=== PATIENT | female | born 1955 | race Caucasian/White ===

== ENCOUNTER 2016-09-01 03:03 | Emergency (ER) | payer MEDICARE, MEDICAID, OTHER ==
[~2016-09-01] VITALS: Ht 144.8 cm; Wt 40.9 kg
[~2016-09-01 03:03] MED LIST: AMLO5TAB88 PO; ASC250 PO; Aspirin PO; BUPR100T6 PO; Benazepril Hcl PO; COR12 PO; LEVO250T2 PO; MEGE400O28 PO; NEPVIT PO; OMEP20CA10 PO; OR220 PO; Silver Sulfadiazine TOP
[2016-09-01] MEDS ORDERED: DEXTROSE 50% WATER 50ML SYRINGE IV ONE (03:33)
[2016-09-01 05:06] LABS: CALCIUM 8.1 mg/dL (8.5-10.1)
[2016-09-01 05:10] VITALS: BP 142/67
[2016-09-01 05:17] LABS: BASOPHILS % 1.5 % (0.0-2.0); EOSINOPHILS % 3.4 % (0.0-5.0); HEMATOCRIT. 28.7 % (36.0-48.0); HEMOGLOBIN. 9.4 g/dL (12.0-16.0); LYMPHOCYTES % 23.7 % (20.0-50.0); MEAN CORPUSCULAR HEMOGLOBIN 32.5 pg (28.0-32.0); MEAN CORPUSCULAR HGB CONC 32.7 g/dL (31.0-37.0); MEAN CORPUSCULAR VOLUME 99.5 fL (81.0-99.0); MEAN PLATELET VOLUME 8.4 fl (7.4-10.4); MONOCYTES % 11.4 % (2.0-8.0); PLATELET 103 x1000/uL (130-400); RED BLOOD CELL COUNT 2.88 mill/uL (4.2-5.4); RED CELL DISTRIBUTION WIDTH 18.4 % (11.6-14.6)
== END 2016-09-01 07:13 | disposition home or self-care (01) ==
LOC: ER 03:04
DX: E11.649 Type 2 diabetes mellitus with hypoglycemia without coma (principal); I12.0 Hypertensive chronic kidney disease with stage 5 chronic kidney disease or end stage renal disease; N18.6 End stage renal disease; E11.22 Type 2 diabetes mellitus with diabetic chronic kidney disease; Z99.2 Dependence on renal dialysis; Z88.1 Allergy status to other antibiotic agents; Z88.0 Allergy status to penicillin; Z79.82 Long term (current) use of aspirin
CPT/HCPCS: 36415; 71010; 80048; 82962; 85025; 93005; 99285

== ENCOUNTER 2016-09-02 02:14 | Observation (INO) | payer MEDICARE, OTHER ==
[~2016-09-02] VITALS: Ht 157.5 cm; Wt 40.1 kg
[2016-09-02 03:17] LABS: BASOPHILS % 1.5 % (0.0-2.0); EOSINOPHILS % 3.1 % (0.0-5.0); HEMATOCRIT. 26.9 % (36.0-48.0); HEMOGLOBIN. 8.9 g/dL (12.0-16.0); LYMPHOCYTES % 18.7 % (20.0-50.0); MEAN CORPUSCULAR HEMOGLOBIN 32.5 pg (28.0-32.0); MEAN CORPUSCULAR VOLUME 98.3 fL (81.0-99.0); MEAN PLATELET VOLUME 7.9 fl (7.4-10.4); MONOCYTES % 8.7 % (2.0-8.0); PLATELET 95 x1000/uL (130-400); RED BLOOD CELL COUNT 2.73 mill/uL (4.2-5.4); RED CELL DISTRIBUTION WIDTH 18.2 % (11.6-14.6); WHITE BLOOD COUNT 5.4 x1000/uL (4.5-11.0)
[2016-09-02 03:27] LABS: AMMONIA 28 uMol/L (<32); INDEX HEMOLYSI 1 (1-3)
[2016-09-02 03:35] LABS: ACETAMINOPHEN < 2 ug/mL (10-30); ALANINE AMINOTRANSFERASE 8 IU/L (13-61); ALBUMIN 2.4 g/dL (3.4-5.0); ANION GAP 9; CARBON DIOXIDE 34 mEq/L (21-32); CHLORIDE 96 mEq/L (98-107); ETHANOL BLOOD < 10 mg/dL; INDEX HEMOLYSI 1 (1-3); INDEX ICTERIC 1 (1-4); INDEX LIPEMIC 1 (1-3); LIPASE 51 IU/L (73-393); TROPONIN I 0.02 ng/mL (0.00-0.04); UREA NITROGEN BLOOD 10 mg/dL (7-21); eGFR 42 mL/min (>60)
[2016-09-02 03:39] LABS: INR 1.3; PROTHROMBIN TIME 13.9 sec
[2016-09-02 03:47] LABS: NT PRO B-TYPE NATRIURETIC PEP 70337 pg/mL (5-125)
[2016-09-02] MEDS ORDERED: POTASSIUM CHLORIDE 20MEQ TABLET SR PO ONE (04:00)
[2016-09-02] MEDS ORDERED: LEVOFLOXACIN 500MG PREMIX 100 ML IV ONE (05:15)
[2016-09-02] MEDS ORDERED: VANCOMYCIN 1 G PREMIX 200 ML IV SCH (05:15)
[2016-09-02] MEDS ORDERED: LEVETIRACETAM 500MG PREMIX 100 ML IV ONE (05:15)
[2016-09-02 06:25] LABS: BG BASE EXCESS 5.2 mmol/L (-2.0-2.0); BG CARBOXYHEMOGLOBIN 1.7 % (0.5-1.5); BG DEOXYHEMOGLOBIN 4.3 % (0.0-5.0); BG FRACTION INSPIRED OXYGEN 21; BG METHEMOGLOBIN 0.3 % (0.0-1.5); BG OXYGEN SATURATION 95.6 % (92.0-98.5); BG OXYHEMOGLOBIN 93.7 % (94.0-97.0); BG PCO2 52.1 mmHg (35.0-45.0); BG PH 7.392 (7.350-7.450); BG PO2 87.4 mmHg (75.0-100.0); BG SAMPLE SITE RIGHT RADIAL; BG TOTAL HEMOGLOBIN 9.7 g/dL (12.0-18.0); BG VENT MODE ROOM AIR
[2016-09-02 08:05] VITALS: BP 134/64
[2016-09-02 12:00] VITALS: BP_SYST 116; BP_SYST 128; BP_DIAS 69; BP_DIAS 70
[2016-09-02 12:21] LABS: BASOPHILS % 1.1 % (0.0-2.0); EOSINOPHILS % 4.5 % (0.0-5.0); HEMATOCRIT. 26.8 % (36.0-48.0); LYMPHOCYTES % 25.1 % (20.0-50.0); MEAN CORPUSCULAR HGB CONC 33.6 g/dL (31.0-37.0); MEAN CORPUSCULAR VOLUME 98.1 fL (81.0-99.0); MEAN PLATELET VOLUME 8.5 fl (7.4-10.4); MONOCYTES % 6.8 % (2.0-8.0); NEUTROPHILS % 62.5 % (40.0-76.0); PLATELET 89 x1000/uL (130-400); RED BLOOD CELL COUNT 2.73 mill/uL (4.2-5.4); RED CELL DISTRIBUTION WIDTH 18.1 % (11.6-14.6); WHITE BLOOD COUNT 4.5 x1000/uL (4.5-11.0)
[2016-09-02] MEDS ORDERED: DEXTROSE 50% WATER 50ML SYRINGE IV PRN (12:30)
[2016-09-02] MEDS: BLOOD SUGAR DIAGNOSTIC STRIP TEST SCH ×3 (12:41→21:50)
[2016-09-02] MEDS: INSULIN LISPRO 100 UNITS/ML SUBCUT SCH ×3 (12:41→21:00)
[2016-09-02] MEDS: ASPIRIN 81MG EC TABLET PO SCH (12:42)
[2016-09-02] MEDS: ZINC SULFATE 220 MG ( 50 ) CAPSULE PO SCH (12:42)
[2016-09-02] MEDS: BUPROPION HCL 100MG SR TABLET PO SCH (12:42)
[2016-09-02] MEDS: ASCORBIC ACID 250 MG TABLET PO SCH ×2 (12:42→21:50)
[2016-09-02] MEDS: CARVEDILOL 12.5MG TABLET PO SCH ×2 (12:42→21:00)
[2016-09-02] MEDS: AMLODIPINE 5MG TABLET PO SCH ×2 (12:42→21:00)
[2016-09-02] MEDS: OMEPRAZOLE 20MG CAPSULE EXTENDED RELEASE PO SCH (12:42)
[2016-09-02] MEDS: MEGESTROL ACETATE 400 MG/10 ML UDC PO SCH (12:42)
[2016-09-02] MEDS: BENAZEPRIL 20MG TABLET PO SCH ×2 (12:42→21:00)
[2016-09-02] MEDS: FOLIC ACID/VITAMIN B COMP W-C TABLET PO SCH (12:43)
[2016-09-02 16:00] VITALS: BP_SYST 118; BP_SYST 99; BP_DIAS 57; BP_DIAS 67
[2016-09-02 20:00] VITALS: BP 101/48
[2016-09-02] MEDS ORDERED: ONDANSETRON HCL 4MG/2ML VIAL IV PRN (22:30)
[2016-09-02] MEDS ORDERED: ACETAMINOPHEN 325MG TABLET PO PRN (22:30)
[2016-09-02] MEDS ORDERED: GENTAMICIN 80MG PREMIX 100 ML IV NR (23:30)
[2016-09-02] MEDS: IPRATROPIUM/ALBUTEROL 0.5-3(2.5)MG/3ML NEB HHN SCH (23:38)
[2016-09-03] VITALS: BP 150/72
[2016-09-03] MEDS: IPRATROPIUM/ALBUTEROL 0.5-3(2.5)MG/3ML NEB HHN SCH ×4 (03:28→16:12)
[2016-09-03 04:00] VITALS: BP 147/72
[2016-09-03] MEDS: BLOOD SUGAR DIAGNOSTIC STRIP TEST SCH ×4 (06:28→20:40)
[2016-09-03 08:00] VITALS: BP 162/74
[2016-09-03] MEDS: INSULIN LISPRO 100 UNITS/ML SUBCUT SCH ×4 (08:10→20:41)
[2016-09-03] MEDS: ASPIRIN 81MG EC TABLET PO SCH ×2 (08:16→08:20)
[2016-09-03] MEDS: BUPROPION HCL 100MG SR TABLET PO SCH (08:16)
[2016-09-03] MEDS: FOLIC ACID/VITAMIN B COMP W-C TABLET PO SCH (08:16)
[2016-09-03] MEDS: ASCORBIC ACID 250 MG TABLET PO SCH ×2 (08:16→20:33)
[2016-09-03] MEDS: LEVOTHYROXINE SODIUM 50MCG TABLET PO SCH (08:16)
[2016-09-03] MEDS: ZINC SULFATE 220 MG ( 50 ) CAPSULE PO SCH (08:16)
[2016-09-03] MEDS: MEGESTROL ACETATE 400 MG/10 ML UDC PO SCH ×2 (08:17→08:20)
[2016-09-03] MEDS: OMEPRAZOLE 20MG CAPSULE EXTENDED RELEASE PO SCH (08:17)
[2016-09-03] MEDS: AMLODIPINE 5MG TABLET PO SCH ×2 (08:17→20:33)
[2016-09-03] MEDS: CARVEDILOL 12.5MG TABLET PO SCH ×2 (08:17→20:33)
[2016-09-03 08:44] LABS: BASOPHILS % 0.9 % (0.0-2.0); EOSINOPHILS % 3.6 % (0.0-5.0); HEMATOCRIT. 25.3 % (36.0-48.0); HEMOGLOBIN. 8.6 g/dL (12.0-16.0); LYMPHOCYTES % 21.2 % (20.0-50.0); MEAN CORPUSCULAR HGB CONC 33.8 g/dL (31.0-37.0); MEAN CORPUSCULAR VOLUME 97.6 fL (81.0-99.0); MEAN PLATELET VOLUME 8.8 fl (7.4-10.4); MONOCYTES % 5.6 % (2.0-8.0); NEUTROPHILS % 68.7 % (40.0-76.0); PLATELET 96 x1000/uL (130-400); RED BLOOD CELL COUNT 2.59 mill/uL (4.2-5.4); RED CELL DISTRIBUTION WIDTH 17.9 % (11.6-14.6)
[2016-09-03] MEDS ORDERED: ENOXAPARIN 30MG/0.3ML SYR SUBCUT SCH (09:00)
[2016-09-03] MEDS: BENAZEPRIL 20MG TABLET PO SCH ×2 (09:00→20:37)
[2016-09-03 12:00] VITALS: BP 123/57
[2016-09-03 16:00] VITALS: BP 101/47
[2016-09-03 20:00] VITALS: BP 128/67
[2016-09-03] MEDS: TEMAZEPAM 15MG CAPSULE PO PRN (20:33)
[2016-09-04 00:05] VITALS: BP 125/71
[2016-09-04] MEDS: IPRATROPIUM/ALBUTEROL 0.5-3(2.5)MG/3ML NEB HHN SCH ×3 (00:45→21:01)
[2016-09-04 04:00] VITALS: BP 130/60
[2016-09-04 05:58] LABS: BASOPHILS % 0.8 % (0.0-2.0); EOSINOPHILS % 4.6 % (0.0-5.0); HEMATOCRIT. 26.1 % (36.0-48.0); HEMOGLOBIN. 8.7 g/dL (12.0-16.0); LYMPHOCYTES % 25.9 % (20.0-50.0); MEAN CORPUSCULAR HEMOGLOBIN 32.8 pg (28.0-32.0); MEAN CORPUSCULAR HGB CONC 33.3 g/dL (31.0-37.0); MEAN CORPUSCULAR VOLUME 98.3 fL (81.0-99.0); MEAN PLATELET VOLUME 8.4 fl (7.4-10.4); NEUTROPHILS % 62.7 % (40.0-76.0); PLATELET 104 x1000/uL (130-400); RED BLOOD CELL COUNT 2.65 mill/uL (4.2-5.4); RED CELL DISTRIBUTION WIDTH 17.9 % (11.6-14.6); WHITE BLOOD COUNT 5.5 x1000/uL (4.5-11.0)
[2016-09-04] MEDS: BLOOD SUGAR DIAGNOSTIC STRIP TEST SCH ×4 (07:40→20:30)
[2016-09-04 07:49] LABS: ALANINE AMINOTRANSFERASE 7 IU/L (13-61); ALBUMIN 2.5 g/dL (3.4-5.0); ANION GAP 12; CALCIUM 8.2 mg/dL (8.5-10.1); CARBON DIOXIDE 29 mEq/L (21-32); CHLORIDE 97 mEq/L (98-107); INDEX HEMOLYSI 1 (1-3); INDEX ICTERIC 1 (1-4); INDEX LIPEMIC 1 (1-3); UREA NITROGEN BLOOD 28 mg/dL (7-21); eGFR 17 mL/min (>60)
[2016-09-04 08:00] VITALS: BP 147/73
[2016-09-04] MEDS: INSULIN LISPRO 100 UNITS/ML SUBCUT SCH ×4 (08:10→20:30)
[2016-09-04] MEDS: ZINC SULFATE 220 MG ( 50 ) CAPSULE PO SCH (10:49)
[2016-09-04] MEDS: BUPROPION HCL 100MG SR TABLET PO SCH (10:49)
[2016-09-04] MEDS: ASCORBIC ACID 250 MG TABLET PO SCH ×2 (10:49→21:40)
[2016-09-04] MEDS: MEGESTROL ACETATE 400 MG/10 ML UDC PO SCH (10:49)
[2016-09-04] MEDS: CARVEDILOL 12.5MG TABLET PO SCH ×2 (10:49→21:40)
[2016-09-04] MEDS: LEVOTHYROXINE SODIUM 50MCG TABLET PO SCH (10:49)
[2016-09-04] MEDS: FOLIC ACID/VITAMIN B COMP W-C TABLET PO SCH (10:49)
[2016-09-04] MEDS: OMEPRAZOLE 20MG CAPSULE EXTENDED RELEASE PO SCH (10:49)
[2016-09-04] MEDS: ASPIRIN 81MG EC TABLET PO SCH (10:49)
[2016-09-04] MEDS: AMLODIPINE 5MG TABLET PO SCH ×2 (10:49→21:39)
[2016-09-04] MEDS: BENAZEPRIL 20MG TABLET PO SCH ×2 (10:51→21:43)
[2016-09-04 12:00] VITALS: BP 148/72
[2016-09-04 16:00] VITALS: BP 108/66
[2016-09-04 20:00] VITALS: BP 117/65
[2016-09-04] MEDS: TEMAZEPAM 15MG CAPSULE PO PRN (21:39)
[2016-09-05] VITALS: BP 128/57
[2016-09-05] MEDS: IPRATROPIUM/ALBUTEROL 0.5-3(2.5)MG/3ML NEB HHN SCH ×4 (00:37→11:12)
[2016-09-05 04:00] VITALS: BP 142/74
[2016-09-05] MEDS: BLOOD SUGAR DIAGNOSTIC STRIP TEST SCH (07:40)
[2016-09-05] MEDS: LEVOTHYROXINE SODIUM 50MCG TABLET PO SCH (07:40)
[2016-09-05] MEDS: OMEPRAZOLE 20MG CAPSULE EXTENDED RELEASE PO SCH (07:40)
[2016-09-05 08:00] VITALS: BP 146/110
[2016-09-05] MEDS: CARVEDILOL 12.5MG TABLET PO SCH (09:00)
[2016-09-05] MEDS: ASPIRIN 81MG EC TABLET PO SCH (09:00)
[2016-09-05] MEDS: ASCORBIC ACID 250 MG TABLET PO SCH (09:00)
[2016-09-05] MEDS: BENAZEPRIL 20MG TABLET PO SCH (09:00)
[2016-09-05] MEDS: AMLODIPINE 5MG TABLET PO SCH (09:00)
[2016-09-05] MEDS: MEGESTROL ACETATE 400 MG/10 ML UDC PO SCH (09:00)
[2016-09-05] MEDS: BUPROPION HCL 100MG SR TABLET PO SCH (09:00)
[2016-09-05] MEDS: ZINC SULFATE 220 MG ( 50 ) CAPSULE PO SCH (09:00)
[2016-09-05] MEDS: FOLIC ACID/VITAMIN B COMP W-C TABLET PO SCH (09:00)
[2016-09-05 11:52] VITALS: BP 95/45
[2016-09-05 16:20] VITALS: BP 136/66
[2016-09-05 17:36] VITALS: BP 136/66
== END 2016-09-05 19:50 | disposition home or self-care (01) ==
LOC: ER 02:15 → 7WST 05:55 → INTOOBSV 05:55
PROVIDERS: ADMIT Internal Medicine; ATTEND Internal Medicine
DX: I50.9 Heart failure, unspecified (principal); J98.11 Atelectasis; G93.40 Encephalopathy, unspecified; N18.6 End stage renal disease; E11.22 Type 2 diabetes mellitus with diabetic chronic kidney disease; I13.2 Hypertensive heart and chronic kidney disease with heart failure and with stage 5 chronic kidney disease, or end stage renal disease; E11.21 Type 2 diabetes mellitus with diabetic nephropathy; M54.9 Dorsalgia, unspecified; E11.40 Type 2 diabetes mellitus with diabetic neuropathy, unspecified; E11.319 Type 2 diabetes mellitus with unspecified diabetic retinopathy without macular edema; E46 Unspecified protein-calorie malnutrition; R09.02 Hypoxemia; Z99.2 Dependence on renal dialysis; E11.51 Type 2 diabetes mellitus with diabetic peripheral angiopathy without gangrene; D63.8 Anemia in other chronic diseases classified elsewhere; G82.20 Paraplegia, unspecified; M86.9 Osteomyelitis, unspecified; A41.9 Sepsis, unspecified organism; E03.9 Hypothyroidism, unspecified; E11.69 Type 2 diabetes mellitus with other specified complication; K74.60 Unspecified cirrhosis of liver; I31.3 Pericardial effusion (noninflammatory); Z88.0 Allergy status to penicillin
CPT/HCPCS: 36415; 36600; 70450; 70551; 71010; 74176; 80048; 80053; 80061; 80307; 80329; 82140; 82375; 82805; 82962; 83605; 83690; 83880; 84443; 84484; 85025; 85610; 93005; 94640; 94664; 96365; 96367; 96372; 96375; 97166; 99285; G0378; G0482; J1580; J1815; J1953; J1956; J2405; J3370; J7030; J7050; J7620; A4315

== ENCOUNTER 2016-09-10 08:33 | Emergency (ER) | payer MEDICARE, OTHER ==
[~2016-09-10] VITALS: Ht 160 cm; Wt 56.0 kg
[2016-09-10] MEDS ORDERED: DEXTROSE 50% WATER 50ML SYRINGE IV ONE ×2 (08:45→08:46)
[2016-09-10 08:57] LABS: BASOPHILS % 1.2 % (0.0-2.0); EOSINOPHILS % 3.9 % (0.0-5.0); LYMPHOCYTES % 33.2 % (20.0-50.0); MEAN CORPUSCULAR HEMOGLOBIN 32.9 pg (28.0-32.0); MEAN CORPUSCULAR VOLUME 98.6 fL (81.0-99.0); MEAN PLATELET VOLUME 8.5 fl (7.4-10.4); MONOCYTES % 8.1 % (2.0-8.0); NEUTROPHILS % 53.6 % (40.0-76.0); PLATELET 128 x1000/uL (130-400); RED BLOOD CELL COUNT 2.44 mill/uL (4.2-5.4); RED CELL DISTRIBUTION WIDTH 16.8 % (11.6-14.6)
[2016-09-10 08:59] LABS: CHLORIDE 94 mEq/L (98-107)
[2016-09-10 09:04] LABS: CARBON DIOXIDE 35 mEq/L (21-32)
[2016-09-10 14:04] VITALS: BP 158/74
== END 2016-09-10 14:07 | disposition home or self-care (01) ==
LOC: ER 08:34
DX: E11.649 Type 2 diabetes mellitus with hypoglycemia without coma (principal); I12.0 Hypertensive chronic kidney disease with stage 5 chronic kidney disease or end stage renal disease; E11.22 Type 2 diabetes mellitus with diabetic chronic kidney disease; N18.6 End stage renal disease; Z99.2 Dependence on renal dialysis; Z88.3 Allergy status to other anti-infective agents; Z88.0 Allergy status to penicillin
CPT/HCPCS: 36415; 51702; 70450; 71010; 80053; 82962; 85025; 93005; 96374; 99285; A4315

== ENCOUNTER 2016-11-11 02:37 | Inpatient (IN) | payer MEDICARE, OTHER ==
[~2016-11-11] VITALS: Ht 160 cm; Wt 45.4 kg
[~2016-11-11 02:37] MED LIST changes: +ALPR-392 PO; +BENA40TA3 PO; +CODE118S2 PO; +HUMULIN 70/30; +VITAMIN C PO
[2016-11-11 03:28] LABS: BASOPHILS % 1.1 % (0.0-2.0); EOSINOPHILS % 0.7 % (0.0-5.0); HEMATOCRIT. 33.5 % (36.0-48.0); HEMOGLOBIN. 11.2 g/dL (12.0-16.0); LYMPHOCYTES % 17.3 % (20.0-50.0); MEAN CORPUSCULAR HEMOGLOBIN 32.7 pg (28.0-32.0); MEAN CORPUSCULAR VOLUME 97.8 fL (81.0-99.0); MEAN PLATELET VOLUME 9.8 fl (7.4-10.4); MONOCYTES % 11.8 % (2.0-8.0); NEUTROPHILS % 69.1 % (40.0-76.0); PLATELET 128 x1000/uL (130-400); RED BLOOD CELL COUNT 3.42 mill/uL (4.2-5.4); RED CELL DISTRIBUTION WIDTH 17.8 % (11.6-14.6)
[2016-11-11] MEDS ORDERED: DEXT 10% WATER 1,000 ML IV ONE (04:31)
[2016-11-11 08:37] VITALS: BP 144/55
[2016-11-11 09:10] VITALS: BP 144/55
[2016-11-11 10:16] VITALS: BP 144/55
[2016-11-11] MEDS ORDERED: FOLI0.8T23 PO (10:37)
[2016-11-11] MEDS ORDERED: HYDROMORPHONE HCL/PF 2MG/ML CPJ IV PRN (11:00)
[2016-11-11] MEDS ORDERED: BENAZEPRIL 20MG TABLET PO SCH (11:00)
[2016-11-11] MEDS ORDERED: MEDICATION NOT ON FORMULARY EA (Alprazolam 0.25 MG) PO SCH (11:00)
[2016-11-11] MEDS ORDERED: LORAZEPAM 2MG/ML CPJ IV PRN (11:00)
[2016-11-11] MEDS ORDERED: MEDICATION NOT ON FORMULARY EA (Benazepril Hcl 1 TAB) PO SCH (11:00)
[2016-11-11] MEDS ORDERED: POTASSIUM CHLORIDE 20MEQ TABLET SR PO SCH (11:00)
[2016-11-11] MEDS ORDERED: DIPHENHYDRAMINE 50MG/ML VIAL IV PRN (11:00)
[2016-11-11] MEDS ORDERED: ACETAMINOPHEN 325MG TABLET PO PRN (11:00)
[2016-11-11] MEDS ORDERED: ONDANSETRON HCL 4MG/2ML VIAL IV PRN (11:00)
[2016-11-11] MEDS ORDERED: ASPIRIN PO SCH (11:00)
[2016-11-11] MEDS ORDERED: GUAIFENESIN/CODEINE 200-20MG/10ML UDC PO PRN (11:15)
[2016-11-11] MEDS ORDERED: ALPRAZOLAM 0.25 MG TABLET PO PRN (11:15)
[2016-11-11 11:56] VITALS: BP 154/49
[2016-11-11] MEDS: ASCORBIC ACID 250 MG TABLET PO SCH ×2 (12:11→20:21)
[2016-11-11] MEDS: AMLODIPINE 5MG TABLET PO SCH ×2 (12:12→20:21)
[2016-11-11] MEDS: ASPIRIN 81MG EC TABLET PO SCH (12:13)
[2016-11-11] MEDS: FOLIC ACID/VITAMIN B COMP W-C TABLET PO SCH (12:13)
[2016-11-11] MEDS: ENOXAPARIN 30MG/0.3ML SYR SUBCUT SCH (12:14)
[2016-11-11] MEDS: BENAZEPRIL 20MG TABLET PO SCH (12:16)
[2016-11-11] MEDS ORDERED: DEXTROSE 50% WATER 50ML SYRINGE IV PRN (13:00)
[2016-11-11 15:29] VITALS: BP 148/45
[2016-11-11] MEDS: BLOOD SUGAR DIAGNOSTIC STRIP TEST SCH ×2 (16:30→20:33)
[2016-11-11] MEDS: DEXTROSE 5% WATER 1,000 ML IV SCH (17:05)
[2016-11-11 20:00] VITALS: BP 136/57
[2016-11-11] MEDS ORDERED: [UNRECOGNIZED DRUG - OTHER] PO SCH (21:00)
[2016-11-12] VITALS: BP 131/49
[2016-11-12 04:00] VITALS: BP 125/61
[2016-11-12] MEDS: BLOOD SUGAR DIAGNOSTIC STRIP TEST SCH ×2 (07:41→11:12)
[2016-11-12 07:53] LABS: HEMATOCRIT. 32.1 % (36.0-48.0); HEMOGLOBIN. 10.7 g/dL (12.0-16.0); MEAN CORPUSCULAR HEMOGLOBIN 32.6 pg (28.0-32.0); MEAN CORPUSCULAR VOLUME 97.3 fL (81.0-99.0); PLATELET 130 x1000/uL (130-400); RED CELL DISTRIBUTION WIDTH 17.2 % (11.6-14.6)
[2016-11-12 08:00] VITALS: BP 142/71
[2016-11-12 08:27] LABS: CARBON DIOXIDE 29 mEq/L (21-32); CHLORIDE 92 mEq/L (98-107)
[2016-11-12] MEDS: ASCORBIC ACID 250 MG TABLET PO SCH (09:56)
[2016-11-12] MEDS: FOLIC ACID/VITAMIN B COMP W-C TABLET PO SCH (09:56)
[2016-11-12] MEDS: BENAZEPRIL 20MG TABLET PO SCH (09:56)
[2016-11-12] MEDS: AMLODIPINE 5MG TABLET PO SCH (09:57)
[2016-11-12] MEDS: ENOXAPARIN 30MG/0.3ML SYR SUBCUT SCH (09:57)
[2016-11-12] MEDS: ASPIRIN 81MG EC TABLET PO SCH (09:57)
[2016-11-12] MEDS: DEXTROSE 5% WATER 1,000 ML IV SCH (11:08)
[2016-11-12 12:00] VITALS: BP 118/67
[2016-11-12 13:53] VITALS: BP 118/67
[2016-11-12 14:49] LABS: PLATELET ESTIMATE NORMAL
== END 2016-11-12 15:55 | disposition home or self-care (01) | DRG 637 ==
LOC: ER 02:37 → 8WST 06:17 → EDBEDREQ 06:43 → ENRESERV 07:01 → 8WST 08:38
PROVIDERS: ADMIT Internal Medicine; ATTEND Internal Medicine
DX: E11.649 Type 2 diabetes mellitus with hypoglycemia without coma (principal); E43 Unspecified severe protein-calorie malnutrition; I12.0 Hypertensive chronic kidney disease with stage 5 chronic kidney disease or end stage renal disease; Z68.1 Body mass index [BMI] 19.9 or less, adult; N18.6 End stage renal disease; D63.8 Anemia in other chronic diseases classified elsewhere; E11.22 Type 2 diabetes mellitus with diabetic chronic kidney disease; E87.6 Hypokalemia; E11.51 Type 2 diabetes mellitus with diabetic peripheral angiopathy without gangrene; Z99.2 Dependence on renal dialysis; Z99.3 Dependence on wheelchair; Z88.1 Allergy status to other antibiotic agents; Z88.0 Allergy status to penicillin; I73.9 Peripheral vascular disease, unspecified
CPT/HCPCS: 36415; 71010; 80048; 80053; 82962; 83690; 84443; 85007; 85025; 85027; 93005; 96360; 99291; J1650; J2060; J2405; J7070

== ENCOUNTER 2016-11-15 11:18 | Emergency (ER) | payer MEDICARE, OTHER ==
[~2016-11-15] VITALS: Ht 154.9 cm; Wt 50.0 kg
[~2016-11-15 11:18] MED LIST changes: +FOLI0.8T23 PO; -HUMULIN 70/30
[2016-11-15 12:44] LABS: EOSINOPHILS % 1.9 % (0.0-5.0); HEMATOCRIT. 29.2 % (36.0-48.0); HEMOGLOBIN. 9.7 g/dL (12.0-16.0); LYMPHOCYTES % 19.1 % (20.0-50.0); MEAN CORPUSCULAR HEMOGLOBIN 32.8 pg (28.0-32.0); MEAN CORPUSCULAR VOLUME 98.1 fL (81.0-99.0); MEAN PLATELET VOLUME 8.5 fl (7.4-10.4); MONOCYTES % 6.3 % (2.0-8.0); NEUTROPHILS % 71.7 % (40.0-76.0); PLATELET 113 x1000/uL (130-400); RED BLOOD CELL COUNT 2.97 mill/uL (4.2-5.4); RED CELL DISTRIBUTION WIDTH 17.9 % (11.6-14.6)
[2016-11-15 12:52] LABS: INR 1.3; PROTHROMBIN TIME 13.4 sec
[2016-11-15 12:58] LABS: CARBON DIOXIDE 32 mEq/L (21-32); CHLORIDE 98 mEq/L (98-107)
[2016-11-15] MEDS ORDERED: POTASSIUM CHLORIDE 20MEQ TABLET SR PO ONE (14:00)
[2016-11-15 17:50] VITALS: BP 173/91
== END 2016-11-15 17:54 | disposition home or self-care (01) ==
LOC: ER 11:38 → CANBEDREQ 16:16 → ER 17:54
DX: R41.82 Altered mental status, unspecified (principal); R53.1 Weakness; E11.22 Type 2 diabetes mellitus with diabetic chronic kidney disease; I12.0 Hypertensive chronic kidney disease with stage 5 chronic kidney disease or end stage renal disease; N18.6 End stage renal disease; Z88.0 Allergy status to penicillin; Z99.2 Dependence on renal dialysis
CPT/HCPCS: 36415; 70450; 71010; 80053; 83605; 85025; 85610; 87040; 93005; 99285

== ENCOUNTER 2016-11-18 14:28 | Emergency (ER) | payer MEDICARE, OTHER ==
[~2016-11-18] VITALS: Ht 142.2 cm; Wt 46.0 kg
[2016-11-18] MEDS ORDERED: CODE118S2 PO (17:16)
[2016-11-18] MEDS ORDERED: ASPI-1159 PO (17:20)
[2016-11-18] MEDS ORDERED: BENA40TA3 PO (17:20)
[2016-11-18] MEDS ORDERED: AMLO10TA4 PO (17:20)
[2016-11-18] MEDS ORDERED: ASCO500C6 PO (17:20)
[2016-11-18] MEDS ORDERED: NEPVIT PO (17:21)
[2016-11-18 17:39] LABS: CARBON DIOXIDE 27 mEq/L (21-32); CHLORIDE 98 mEq/L (98-107); ETHANOL BLOOD < 10 mg/dL
[2016-11-18 17:40] LABS: AMMONIA 50 uMol/L (<32)
[2016-11-18 17:40] LABS: BASOPHILS % 1.2 % (0.0-2.0); EOSINOPHILS % 1.2 % (0.0-5.0); HEMATOCRIT. 32.5 % (36.0-48.0); HEMOGLOBIN. 10.6 g/dL (12.0-16.0); LYMPHOCYTES % 19.2 % (20.0-50.0); MEAN CORPUSCULAR HEMOGLOBIN 32.8 pg (28.0-32.0); MEAN CORPUSCULAR VOLUME 100.6 fL (81.0-99.0); MEAN PLATELET VOLUME 9.3 fl (7.4-10.4); MONOCYTES % 9.8 % (2.0-8.0); NEUTROPHILS % 68.6 % (40.0-76.0); PLATELET 135 x1000/uL (130-400); RED BLOOD CELL COUNT 3.23 mill/uL (4.2-5.4); RED CELL DISTRIBUTION WIDTH 18.5 % (11.6-14.6)
[2016-11-18 19:30] VITALS: BP 136/74
== END 2016-11-18 19:34 | disposition home or self-care (01) ==
LOC: ER 14:52
DX: G93.40 Encephalopathy, unspecified (principal); I12.0 Hypertensive chronic kidney disease with stage 5 chronic kidney disease or end stage renal disease; E11.22 Type 2 diabetes mellitus with diabetic chronic kidney disease; N18.6 End stage renal disease; Z99.2 Dependence on renal dialysis; Z79.4 Long term (current) use of insulin; Z88.0 Allergy status to penicillin
CPT/HCPCS: 36415; 70450; 80053; 82140; 82962; 85025; 99285; G0482